=== PATIENT | female | born 1990 | race American Indian/Alaskan Native ===

== ENCOUNTER 2019-04-01 15:06 | Emergency (ER) | payer MEDICAID ==
--- NOTE | 2019-04-01 15:17 | Emergency Department Report ---
Blank Doc - Documentation Documentation: This is a 28-year-old female that presents with headaches. Denies worst heada kacy or tunderclap headache. Patient stated headache is relieved with Motrin. Patient stated she has been having vagianl bleeding for 2 weeks. Exam: neuro exam WNL. This initial assessment/diagnostic orders/clinical plan/treatment(s) is/are subject to change based on patient's health status, clinical progression and re- assessment by fellow clinical providers in the ED. Further treatment and workup at subsequent clinical providers discretion. Patient/guardians urged not to elope from the ED as their condition may be serious if not clinically assessed and managed. Initial orders include: 1- Patient sent to [facility] for further evaluation and treatment 2- labs
[2019-04-01 15:45] LABS: Basophils # (Auto) 0.1 K/mm3 (0.0-0.1); Basophils % (Auto) 1.2 % (0.0-1.8); Eosinophils % (Auto) 0.8 % (0.0-4.3); Hematocrit 24.3 % (30.3-42.9); Hemoglobin 8.2 gm/dl (10.1-14.3); Lymphocytes # (Auto) 1.6 K/mm3 (1.2-5.4); Lymphocytes % (Auto) 32.1 % (13.4-35.0); Mean Corpuscular HGB Conc 34 % (30-34); Mean Corpuscular Volume 92 fl (79-97); Monocytes # (Auto) 0.3 K/mm3 (0.0-0.8); Monocytes % (Auto) 7.1 % (0.0-7.3); Platelet Count 209 K/mm3 (140-440); Red Blood Count 2.65 M/mm3 (3.65-5.03); Red Cell Distribution Width 14.2 % (13.2-15.2)
[2019-04-01 15:58] LABS: Bacteria,Urine 2+ /HPF (Negative); Bilirubin,Urine NEG (Negative); Blood,Urine LG (Negative); Color,Urine Red (Yellow); Mucus,Urine FEW /HPF; Sperm,Urine FEW /HPF (NP); Urobilinogen,Urine < 2.0 mg/dL (<2.0)
[2019-04-01 15:59] LABS: RBC,Urine > 182.0 /HPF (0.0-6.0)
[2019-04-01 16:02] LABS: BUN/Creatinine Ratio 11; Blood Urea Nitrogen 9 mg/dL (7-17); Calcium 8.8 mg/dL (8.4-10.2); Hemolysis Index 1
[2019-04-01] MEDS ORDERED: REGLAN IV ONE (18:45)
[2019-04-01] MEDS ORDERED: BENADRYL IV ONE (18:45)
--- NOTE | 2019-04-01 18:45 | Emergency Department Report ---
ED Headache HPI - General Chief Complaint: Headache Stated Complaint: SEVERE HEADACHE Time Seen by Provider: 04/01/19 15:15 Source: patient Exam Limitations: no limitations - History of Present Illness Initial Comments: This is a 28-year-old -[place] female presents to the emergency room with headache and increased vaginal bleeding for 2 weeks. Patient states she had an IUD removed on March 20 hours and been bleeding ever since. Patient reports headache is worse with light and noise. She is currently taking ibuprofen and Tylenol with minimal improvement of symptoms. Patient reports a history of migraine headaches and a normal CT of the head. She denies nausea, dyspnea, lightheadedness, vomiting, diarrhea, vaginal discharge, back pain, or abdominal pain. Timing/Duration: 1 week, constant Quality: severe, throbbing Head Injury Location: frontal Recent Head Trauma: no recent headache/trauma Modifying Factors: improves with: medication Associated Symptoms: denies symptoms Allergies/Adverse Reactions: Allergies cephalexin [From Keflex] Allergy (Verified 12/01/18 22:21) Rash pineapple Allergy (Verified 12/01/18 22:24) Rash Sulfa (Sulfonamide Antibiotics) Allergy (Verified 12/01/18 22:21) Rash sulfamethoxazole [From Bactrim] Allergy (Verified 12/01/18 22:21) Rash trimethoprim [From Bactrim] Allergy (Verified 12/01/18 22:21) Rash Home Medications: Ambulatory Orders Cyclobenzaprine [Flexeril] 10 mg PO TID PRN #30 tablet 12/02/18 Menthol/Camphor [[place] Ointment] 1 applicatio TP QID PRN #1 tube 12/02/18 Naproxen 500 mg PO BID PRN #30 tablet 12/02/18 Butalb/Acetamin/Caff 50-325-40 [Fioricet] 1 tab PO Q6HR PRN #12 tab 04/01/19 Ferrous Sulfate [Iron 325 MG] 325 mg PO DAILY #30 tablet 04/01/19 medroxyPROGESTERone ACETATE [Medroxyprogesterone Acetate] 10 mg PO DAILY #10 tablet 04/01/19 ED Review of Systems ROS: Stated complaint: SEVERE HEADACHE Other details as noted in HPI Constitutional: denies: chills, fever Respiratory: denies: cough, shortness of breath, wheezing Cardiovascular: denies: chest pain, palpitations Gastrointestinal: denies: abdominal pain, nausea, diarrhea Genitourinary: abnormal menses. denies: urgency, dysuria, discharge Musculoskeletal: denies: back pain, joint swelling, arthralgia Skin: denies: rash, lesions Neurological: denies: headache, weakness, paresthesias Psychiatric: denies: anxiety, depression ED Past Medical Hx - Past Medical History Additional medical history: Anemia - Surgical History Additional Surgical History: C-sections - Social History Smoking Status: Never Smoker Substance Use Type: None - Medications Home Medications: Home Medications Medication Instructions Recorded Confirmed Last Taken Type Cyclobenzaprine [Flexeril] 10 mg PO TID PRN #30 tablet 12/02/18 Unknown Rx Menthol/Camphor [[place] 1 applicatio TP QID PRN #1 tube 12/02/18 Unknown Rx Ointment] Naproxen 500 mg PO BID PRN #30 tablet 12/02/18 Unknown Rx Butalb/Acetamin/Caff 50-325-40 1 tab PO Q6HR PRN #12 tab 04/01/19 Unknown Rx [Fioricet] Ferrous Sulfate [Iron 325 MG] 325 mg PO DAILY #30 tablet 04/01/19 Unknown Rx medroxyPROGESTERone ACETATE 10 mg PO DAILY #10 tablet 04/01/19 Unknown Rx [Medroxyprogesterone Acetate] ED Physical Exam - General Limitations: No Limitations General appearance: alert, in no apparent distress - Respiratory Respiratory exam: Present: normal lung sounds bilaterally. Absent: respiratory distress - Cardiovascular Cardiovascular Exam: Present: regular rate, normal rhythm. Absent: systolic murmur, diastolic murmur, rubs, gallop - GI/Abdominal GI/Abdominal exam: Present: soft, normal bowel sounds. Absent: distended, tenderness, guarding, rebound, organomegaly, mass - Back Exam Back exam: Present: normal inspection - Neurological Exam Neurological exam: Present: alert, oriented X3 - Psychiatric Psychiatric exam: Present: normal affect, normal mood - Skin Skin exam: Present: warm, dry, intact, normal color. Absent: rash ED Course Vital Signs 04/01/19 04/01/19 04/01/19 15:10 18:51 21:05 Temperature 99.5 F 99 F 98.5 F Pulse Rate 104 H 89 72 Respiratory 18 16 17 Rate Blood Pressure 107/58 102/58 90/51 [Right] O2 Sat by Pulse 100 100 100 Oximetry ED Medical Decision Making - Lab Data Result diagrams: 04/01/19 15:32 04/01/19 15:32 Lab Results 04/01/19 04/01/19 04/01/19 Range/Units 15:24 15:32 15:32 WBC 4.9 (4.5-11.0) K/mm3 RBC 2.65 L (3.65-5.03) M/mm3 Hgb 8.2 L (10.1-14.3) gm/dl Hct 24.3 L (30.3-42.9) % MCV 92 (79-97) fl MCH 31 (28-32) pg MCHC 34 (30-34) % RDW 14.2 (13.2-15.2) % Plt Count 209 (140-440) K/mm3 Lymph % (Auto) 32.1 (13.4-35.0) % [place] % (Auto) 7.1 (0.0-7.3) % Eos % (Auto) 0.8 (0.0-4.3) % Baso % (Auto) 1.2 (0.0-1.8) % Lymph # 1.6 (1.2-5.4) K/mm3 [place] # 0.3 (0.0-0.8) K/mm3 Eos # 0.0 (0.0-0.4) K/mm3 Baso # 0.1 (0.0-0.1) K/mm3 Seg Neutrophils % 58.8 (40.0-70.0) % Seg Neutrophils # 2.9 (1.8-7.7) K/mm3 Sodium 140 (137-145) mmol/L Potassium 4.3 (3.6-5.0) mmol/L Chloride 108.5 H (98-107) mmol/L Carbon Dioxide 23 (22-30) mmol/L Anion Gap 13 mmol/L BUN 9 (7-17) mg/dL Creatinine 0.8 (0.7-1.2) mg/dL Estimated GFR > 60 ml/min BUN/Creatinine Ratio 11 % Glucose 91 (65-100) mg/dL Calcium 8.8 (8.4-10.2) mg/dL HCG, Qual (Negative) Urine Color Red (Yellow) Urine Turbidity Cloudy (Clear) Urine pH 8.0 H (5.0-7.0) Ur Specific [place] 1.016 (1.003-1.030) Urine Protein 100 mg/dl (Negative) mg/dL Urine Glucose (UA) Neg (Negative) mg/dL Urine Ketones Neg (Negative) mg/dL Urine Blood Lg (Negative) Urine Nitrite Neg (Negative) Urine Bilirubin Neg (Negative) Urine Urobilinogen < 2.0 (<2.0) mg/dL Ur Leukocyte Esterase Neg (Negative) Urine WBC (Auto) 37.0 H (0.0-6.0) /HPF Urine RBC (Auto) > 182.0 (0.0-6.0) /HPF U Epithel Cells (Auto) 17.0 H (0-13.0) /HPF Urine Bacteria (Auto) 2+ (Negative) /HPF Urine WBC Clumps 3+ /HPF Urine Mucus Few /HPF Urine Yeast (Budding) 2+ /HPF Urine Sperm Few (CHARACTER ACTRESS) /HPF 04/01/19 Range/Units 15:32 WBC (4.5-11.0) K/mm3 RBC (3.65-5.03) M/mm3 Hgb (10.1-14.3) gm/dl Hct (30.3-42.9) % MCV (79-97) fl MCH (28-32) pg MCHC (30-34) % RDW (13.2-15.2) % Plt Count (140-440) K/mm3 Lymph % (Auto) (13.4-35.0) % [place] % (Auto) (0.0-7.3) % Eos % (Auto) (0.0-4.3) % Baso % (Auto) (0.0-1.8) % Lymph # (1.2-5.4) K/mm3 [place] # (0.0-0.8) K/mm3 Eos # (0.0-0.4) K/mm3 Baso # (0.0-0.1) K/mm3 Seg Neutrophils % (40.0-70.0) % Seg Neutrophils # (1.8-7.7) K/mm3 Sodium (137-145) mmol/L Potassium (3.6-5.0) mmol/L Chloride (98-107) mmol/L Carbon Dioxide (22-30) mmol/L Anion Gap mmol/L BUN (7-17) mg/dL Creatinine (0.7-1.2) mg/dL Estimated GFR ml/min BUN/Creatinine Ratio % Glucose (65-100) mg/dL Calcium (8.4-10.2) mg/dL HCG, Qual Negative (Negative) Urine Color (Yellow) Urine Turbidity (Clear) Urine pH (5.0-7.0) Ur Specific [place] (1.003-1.030) Urine Protein (Negative) mg/dL Urine Glucose (UA) (Negative) mg/dL Urine Ketones (Negative) mg/dL Urine Blood (Negative) Urine Nitrite (Negative) Urine Bilirubin (Negative) Urine Urobilinogen (<2.0) mg/dL Ur Leukocyte Esterase (Negative) Urine WBC (Auto) (0.0-6.0) /HPF Urine RBC (Auto) (0.0-6.0) /HPF U Epithel Cells (Auto) (0-13.0) /HPF Urine Bacteria (Auto) (Negative) /HPF Urine WBC Clumps /HPF Urine Mucus /HPF Urine Yeast (Budding) /HPF Urine Sperm (CHARACTER ACTRESS) /HPF - Medical Decision Making Patient was examined by me. Vitals are normal and patient is in no acute distress. Obtained CBC, BMP, hCG, urinalysis. Patient informed of results. H&H 824, urinalysis is contaminated. Patient is asymptomatic and denies dyspnea and lightheadedness. Patient given Toradol, Benadryl, and Reglan while in ER. Reports the headache is better. Start Fioricet for migraines. Start provera and iron for dysfunctional uterine bleeding and anemia. Instructed to follow-up with her [facility]. Plan discussed with patient to discharge home and treat outpatient. She agrees with ER plan. Patient discharged home in stable condition. Follow up with PCP in 2-3 days. Critical care attestation.: If time is entered above; I have spent that time in minutes in the direct care of this critically ill patient, excluding procedure time. ED Disposition Clinical Impression: Vaginal bleeding, Dysfunctional uterine bleeding Migraine Qualifiers: Migraine type: without aura Status migrainosus presence: with status migrainosus Intractability: not intractable Qualified Code(s): G43.001 - Migraine without aura, not intractable, with status migrainosus Menorrhagia Qualifiers: Menorrahagia type: with regular cycle Qualified Code(s): N92.0 - Excessive and frequent menstruation with regular cycle Anemia Qualifiers: Anemia type: unspecified type Qualified Code(s): D64.9 - Anemia, unspecified Disposition: DC-01 TO HOME OR SELFCARE Is pt being admited?: No Does the pt Need Aspirin: No Condition: Stable Instructions: Dysfunctional Uterine Bleeding (ED), Migraine Headache (ED), Menorrhagia (ED) Additional Instructions: Take provera one tab by mouth daily for 5-10 days until bleeding stopped. Follow-up with your [facility] for further evaluation. Take iron tablets daily. You may want to take a stool softener to prevent constipation while taking iron tablets because they may cause constipation. Prescriptions: Butalb/Acetamin/Caff 50-325-40 [Fioricet] 1 tab PO Q6HR PRN #12 tab PRN Reason: Headache Ferrous Sulfate [Iron 325 MG] 325 mg PO DAILY #30 tablet medroxyPROGESTERone ACETATE [Medroxyprogesterone Acetate] 10 mg PO DAILY #10 tablet Referrals: [facility] [Outside] - 3-5 Days KUSUM CABALLERO MD [Primary Care Provider] - 3-5 Days [facility] [Provider Group] - 3-5 Days [facility] [Provider Group] - 3-5 Days Forms: Work/School Release Form(ED) Time of Disposition: 21:59
[2019-04-01] MEDS ORDERED: TORADOL IV ONE (19:22)
[2019-04-01 21:06] VITALS: BP 90/51
== END 2019-04-01 22:16 | disposition home or self-care (01) ==
LOC: ED 15:06
DX: G43.909 Migraine, unspecified, not intractable, without status migrainosus (principal); N92.0 Excessive and frequent menstruation with regular cycle; D64.9 Anemia, unspecified; N93.8 Other specified abnormal uterine and vaginal bleeding; Z88.1 Allergy status to other antibiotic agents; Z91.018 Allergy to other foods; Z88.2 Allergy status to sulfonamides
CPT/HCPCS: 36415; 80048; 81001; 84703; 85025; 96374; 96375; 99283; J1200; J1885; J2765

== ENCOUNTER 2019-05-13 16:37 | Emergency (ER) | payer MEDICAID ==
--- NOTE | 2019-05-13 17:03 | Emergency Department Report ---
Blank Doc - Documentation Documentation: this is a 28-year-old female that presents with generalized itching and rash. Denies any angioedema. Denies any facial swelling. This initial assessment/diagnostic orders/clinical plan/treatment(s) is/are subject to change based on patient's health status, clinical progression and re- assessment by fellow clinical providers in the ED. Further treatment and workup at subsequent clinical providers discretion. Patient/guardians urged not to elope from the ED as their condition may be serious if not clinically assessed and managed. Initial orders include: 1- Patient sent to [facility] for further evaluation and treatment
[2019-05-13 17:06] VITALS: BP 105/67
[2019-05-13] MEDS ORDERED: BENADRYL PO ONE (19:47)
[2019-05-13] MEDS ORDERED: PEPCID PO ONE (19:47)
[2019-05-13] MEDS ORDERED: DELTASONE PO ONE (19:47)
--- NOTE | 2019-05-13 19:59 | Emergency Department Report ---
ED Rash HPI - HPI Chief Complaint: Skin Rash Stated Complaint: RASH Time Seen by Provider: 05/13/19 17:03 Rash Symptoms: Yes Itching, No Facial Swelling, No Tongue/Oral Swelling, No Breathing Difficulties, No Choking Sensation, No Wheezing/Dyspnea, No Peeling, No Blistering, No Fever, No Lightheaded, No Malaise, No Myalgias Severity: moderate Other History: this is a 28-year-old female that presents with generalized itching and rash. Denies sob no cp no diaphoresis no angioedema. Denies any facial swelling, no hives, no open lesions ED Review of Systems ROS: Stated complaint: RASH Other details as noted in HPI Constitutional: denies: chills, fever Eyes: denies: eye pain, eye discharge, vision change ENT: denies: ear pain, throat pain Respiratory: denies: cough, shortness of breath, wheezing Cardiovascular: denies: chest pain, palpitations Endocrine: no symptoms reported Gastrointestinal: denies: abdominal pain, nausea, diarrhea Genitourinary: denies: urgency, dysuria, discharge Musculoskeletal: denies: back pain, joint swelling, arthralgia Skin: rash, pruritus, other Neurological: denies: headache, weakness, paresthesias Psychiatric: denies: anxiety, depression ED Past Medical Hx - Past Medical History Previous Medical History?: Yes Additional medical history: Anemia - Surgical History Past Surgical History?: Yes Additional Surgical History: C-sections - Social History Smoking Status: Never Smoker Substance Use Type: Alcohol - Medications Home Medications: Home Medications Medication Instructions Recorded Confirmed Last Taken Type Cyclobenzaprine [Flexeril] 10 mg PO TID PRN #30 tablet 12/02/18 Unknown Rx Menthol/Camphor [[place] 1 applicatio TP QID PRN #1 tube 12/02/18 Unknown Rx Ointment] Naproxen 500 mg PO BID PRN #30 tablet 12/02/18 Unknown Rx Butalb/Acetamin/Caff 50-325-40 1 tab PO Q6HR PRN #12 tab 04/01/19 Unknown Rx [Fioricet] Ferrous Sulfate [Iron 325 MG] 325 mg PO DAILY #30 tablet 04/01/19 Unknown Rx medroxyPROGESTERone ACETATE 10 mg PO DAILY #10 tablet 04/01/19 Unknown Rx [Medroxyprogesterone Acetate] EPINEPHrine [Epipen 2-Jose] 0.3 mg IJ PRN PRN #1 auto.injct 05/13/19 Unknown Rx Famotidine [Pepcid] 20 mg PO BID PRN 7 Days #14 tablet 05/13/19 Unknown Rx Triamcinolone Aceton 0.1% (Nf) 1 applic TP BID 10 Days #1 tube 05/13/19 Unknown Rx [Kenalog (NF)] diphenhydrAMINE [Benadryl CAP] 25 mg PO Q6HR PRN 7 Days #30 05/13/19 Unknown Rx capsule predniSONE [Deltasone] 40 mg PO QDAY #30 tab 05/13/19 Unknown Rx Rash Exam - Exam General: Vital signs noted. No distress. Alert and acting appropriately. HEENT: No Periorbital Edema, No Conjuctival Injection, No Chemosis, No Perioral Edema, No Tongue Edema, No Uvular Edema, No Compromised Airway, No Drooling Lungs: Yes Good Air Exchange (Normal Breath Sounds), No Wheezes, No Ronchi, No Stridor, No Cough, No Labored Respirations, No Retractions, No Use of Accessory Muscles, No Other Abnormal Lung Sounds Heart: Yes Regular, No Murmur Skin: Yes Urticarial Rash, Yes Bulla(e), Yes Erythema, Yes Other (raised smooth bullea erythema pruritus ), No Maculopapular Rash, No Morbilliform rash, No Excoriations, No Weeping, No Tenderness, No Edema, No Encrustations Other: Positive: Abdomen Normal, Neurologic Normal, Musculoskeletal Normal ED Course Vital Signs 05/13/19 17:04 Temperature 97.9 F Pulse Rate 88 Respiratory 16 Rate Blood Pressure 105/67 O2 Sat by Pulse 100 Oximetry ED Medical Decision Making - Radiology Data Radiology results: report reviewed, image reviewed - Medical Decision Making this is allergic dermatitis brought on by using new lotion today there is no fev er no n/v no cp no diaphoresis , hives relieved , lungs are clear bilat no wheezing , plan dc to home with rx for benadryl, pepcid, prednisone, triamcinolone oint, given epipen education pt verbalized agreement and understanding of discharge plan. Critical care attestation.: If time is entered above; I have spent that time in minutes in the direct care of this critically ill patient, excluding procedure time. ED Disposition Clinical Impression: Allergic dermatitis Disposition: DC-01 TO HOME OR SELFCARE Is pt being admited?: No Does the pt Need Aspirin: No Condition: Stable Instructions: Contact Dermatitis (ED) Prescriptions: diphenhydrAMINE [Benadryl CAP] 25 mg PO Q6HR PRN 7 Days #30 capsule PRN Reason: allergies predniSONE [Deltasone] 40 mg PO QDAY #30 tab EPINEPHrine [Epipen 2-Jose] 0.3 mg IJ PRN PRN #1 auto.injct PRN Reason: allergy symptoms Triamcinolone Aceton 0.1% (Nf) [Kenalog (NF)] 1 applic TP BID 10 Days #1 tube Famotidine [Pepcid] 20 mg PO BID PRN 7 Days #14 tablet PRN Reason: allergies Referrals: TOSHIA MELCHOR MD [Primary Care Provider] - 3-5 Days Forms: Work/School Release Form(ED) Time of Disposition: 20:06
== END 2019-05-13 20:19 | disposition home or self-care (01) ==
LOC: ED 16:37
DX: L23.9 Allergic contact dermatitis, unspecified cause (principal); Z88.1 Allergy status to other antibiotic agents; Z88.2 Allergy status to sulfonamides; Z91.018 Allergy to other foods; Z86.2 Personal history of diseases of the blood and blood-forming organs and certain disorders involving the immune mechanism
CPT/HCPCS: 99282; J7512